=== PATIENT | female | born 1950 | race Caucasian/White ===

== ENCOUNTER → 2018-07-30 | Outpatient (CLI) | payer MEDICARE, OTHER ==
[~2018-07-30] MED LIST: ASCO500T2 PO; ATOR20TA58 PO; B CO1TAB10 PO; BIOF1TAB7 PO; CALC600T4 PO; CETI10TA16 PO; CHOL10003 PO; DILT360C PO; DIPH1TAB PO; FLAX10003 PO; FLEC100T PO; GLUC1CAP13 PO; IBUP-1027 PO; LORA10TA3 PO; MULT1TAB52 PO; PRAS25CA6 PO; TRAM50TA PO; UBID50TA PO
--- NOTE | 2018-07-30 15:57 | KCIC ---
MRI Lumbar Spine without contrast History: Headache low back pain, bilateral hip pain greater on the right Technique: Multiplanar, multi sequential noncontrast MR imaging was performed of the lumbar spine. Comparison: September 26, 2012 Findings: There is fairly advanced degenerative disc disease at L3-4 as seen previously, to lesser degree at L2-3, minimally at L5-S1. There is moderate degenerative disc disease at T11-12 level. There are again likely Tarlov cysts of the sacrum centered near S2-S3 with the largest of these about 2.3 cm. There is trace L3-4 and anterior T11-12 endplate edema likely reactive/degenerative in etiology. There are, likely represent nerve root sleeve cysts of the bilateral T12-L1 and right T11-12 neural foramina. L2-L3: There is minimal disc osteophyte complex and bulge. There is minimal buckling of the ligamentum flavum. Spinal canal and neural foramina are adequate. L3-L4: There is hemangioma of L3. There is mild buckling of the ligamentum flavum and facet degenerative change. There is minimal disc osteophyte complex and bulge. There is minimal narrowing of the far lateral recesses greater on the right, although somewhat increased on the left in interval. Neural foramina are overall adequate. Disc osteophyte complex extends to the proximal right extraforaminal region without significant displacement of the extraforaminal right L3 nerve root. L4-L5: There is mild facet degenerative change and buckling of the ligamentum flavum flavum. Spinal canal is adequate. Neural foramina are overall adequate. L5-S1: There is moderate to severe facet degenerative change greater on the right. Spinal canal and neural foramina are adequate. Impression: 1. There is advanced degenerative disc disease at L3-4, to lesser degree at L2-3 and T11-12. There is mild spondylosis. There is minimal narrowing of the far lateral recesses bilaterally greater on the right at L3-4. 2. 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 Electronically signed by: Jack Peña MD (07/30/2018 3:54 PM) [id number]
== END | disposition home or self-care (01) ==
LOC: KCIC MRI 15:17
PROVIDERS: ATTEND Orthopaedic Surgery
DX: M51.37 Other intervertebral disc degeneration, lumbosacral region (principal); M47.817 Spondylosis without myelopathy or radiculopathy, lumbosacral region; M48.061 Spinal stenosis, lumbar region without neurogenic claudication; M51.34 Other intervertebral disc degeneration, thoracic region; M25.78 Osteophyte, vertebrae; D18.09 Hemangioma of other sites
CPT/HCPCS: 72148

== ENCOUNTER → 2018-09-17 | Outpatient (CLI) | payer OTHER, MEDICARE ==
[2018-09-17 16:09] LABS: BASO % 1 % (0-3); EOS # 0.3 x10^3/uL (0.0-0.7); EOS % 5 % (0-3); HEMATOCRIT 41.7 % (36.0-47.0); HEMOGLOBIN 14.1 g/dL (12.0-15.5); LYMPH # 1.5 x10^3/uL (1.0-4.8); LYMPH % 29 % (24-48); MEAN CORPUSCULAR HEMOGLOBIN 31 pg (25-35); MEAN CORPUSCULAR HGB CONC 34 g/dL (31-37); MEAN CORPUSCULAR VOLUME 93 fL (79-100); MONO # 0.7 x10^3/uL (0.0-1.1); MONO % 14 % (0-9); NEUT # 2.8 x10^3uL (1.8-7.7); NEUT % 52 % (31-73); PLATELET COUNT 221 x10^3/uL (140-400); RED CELL DISTRIBUTION WIDTH 14.1 % (11.5-14.5); WHITE BLOOD COUNT 5.3 x10^3/uL (4.0-11.0)
[2018-09-17 16:34] LABS: ALBUMIN 3.7 g/dL (3.4-5.0); ALBUMIN/GLOBULIN RATIO 1.2 (1.0-1.7); CALCIUM 8.9 mg/dL (8.5-10.1); CREATININE 0.9 mg/dL (0.6-1.0); GFR 62.1; POTASSIUM 3.7 mmol/L (3.5-5.1); TOTAL BILIRUBIN 0.2 mg/dL (0.2-1.0); TOTAL PROTEIN 6.8 g/dL (6.4-8.2)
== END | disposition home or self-care (01) ==
LOC: SURGPAT 13:28
PROVIDERS: ATTEND Neurological Surgery
DX: Z01.818 Encounter for other preprocedural examination (principal); M47.26 Other spondylosis with radiculopathy, lumbar region; M51.16 Intervertebral disc disorders with radiculopathy, lumbar region; Z88.5 Allergy status to narcotic agent
CPT/HCPCS: 36415; 80053; 85025; 87641

== ENCOUNTER 2018-09-27 08:33 | Day surgery (SDC) | payer OTHER ==
--- NOTE | 2018-09-26 16:48 | PREOP HP ---
DATE OF SERVICE: 09/27/2018 Harinder Gordon dictating for Dr. Jr Villegas. Date of surgery will be 09/27/2018. HISTORY OF PRESENT ILLNESS: The patient is a pleasant 68-year-old who has problems with her lower back pain and pain which radiates into her right hip primarily. That pain can radiate in addition to the hip and inguinal region. That problem has been present for years, but has been worse over the last year or so. She says her pain can reach an 8/10. Sitting for any length of time increases her pain. Changing positions helps her. She has had her hip carefully evaluated by an Orthopedic surgeon. He determined that there was no hip problem. She underwent physical therapy in 2013, which she admits made the problem worse. She had an epidural steroid injection in 2015, which she said did help her for a short time. PAST MEDICAL HISTORY: Headaches or migraines, head or neck injury, tonsillitis. PAST SURGICAL HISTORY: Tonsils and adenoids in 1954. FAMILY HISTORY: Cancer, heart problems and disease and spine problems. SOCIAL HISTORY: Tobacco use, denies tobacco use currently. 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 . Rarely exercises. Denies substance abuse. Drinks alcohol 1-2 times per month. Drinks tea daily. ALLERGIES: CODEINE SULFATE. CURRENT MEDICATIONS: Flecainide acetate, diltiazem, atorvastatin calcium, aspirin, glucosamine, calcium, flaxseed oil, multivitamin, vitamin C ____, vitamin D, CoQ10, omega 3, loratadine, ibuprofen. REVIEW OF SYSTEMS: Twelve-point review of systems was obtained and is noncontributory except for that mentioned above. PHYSICAL EXAMINATION: NEUROSURGERY EXAMINATION: GENERAL APPEARANCE: Alert, pleasant, no acute distress. HEAD: Normocephalic and atraumatic. SKIN: Warm and dry. MUSCULOSKELETAL: Lumbar paraspinal muscle bulk is normal, restricted range of motion of the lumbar spine, mild to moderate tenderness of the lower lumbar spine with palpation, normal range of motion of the lower extremities bilaterally. EXTREMITIES: No clubbing, cyanosis or edema. NEUROLOGIC: Alert and oriented x 3, normal recent and remote memory, strength 5/5 in bilateral lower extremities, sensory was intact to light touch in bilateral lower extremities. Reflexes were present and symmetric in lower extremities bilaterally, negative straight leg raising bilaterally, normal gait. IMAGING: Reviewed. I reviewed a lumbar MRI scan from 07/2018. On that study, the principal abnormality was on the right side at L3-L4 where there was lateral recess narrowing. There is a disk osteophyte complex, which also extends to the proximal right foraminal region. ASSESSMENT: Other spondylosis with radiculopathy, lumbar region; intervertebral disk disorder with radiculopathy, lumbar region. PLAN: At this point, the only thing that can be offered is a decompression of L3-L4 on the right side to see if this will help her. I explained it was possible that surgery could be performed and she would not notice any significant change. Alternatively, there is pressure on the nerve root, which does correspond to her leg pain and hopefully decompression at this level will give her some benefit. I spoke with her about the surgery and the risks involved. She understands, she would like to go ahead. We will make the arrangements. JR VILLEGAS MD DR: KERI/callie JOB#: [id number] / [id number]
[~2018-09-27 08:33] MED LIST changes: +BACITRACIN 50,000 UNIT in IV NORMAL SALINE 1000ML BAG 1,000 ML IRR ONE; +BUPIVAC MPF-EPI 0.5%-1:200000 30 ML VIAL. ONE; +GELATIN SPONGE SIZE 12-7MM SPONGE. ONE; +IV RINGERS,LACTATED 1000ML 1,000 ML IV SCH; +KETOROLAC 60 MG/2 ML INJ FOR OR. ONE; +LIDOCAINE 1% PF 2 ML VIAL. ID PRN; +PROCHLORPERAZINE 10 MG/2 ML VIAL. IV PRN; +THROMBIN TOPICAL 20,000 UNIT SPRAY.SYRN KIT TP ONE; +fentaNYL PF VIAL 100 MCG/2 ML VIAL IV PRN
[2018-09-27] MEDS ORDERED: ceFAZolin 2GM PREMIX 2 GM/50 ML BAG IV ONE (09:00)
[2018-09-27] MEDS ORDERED: FAMOTIDINE 20 MG/2 ML VIAL ONE (09:23)
[2018-09-27] MEDS ORDERED: 0.9 % SODIUM CHLORIDE 20 ML VIAL. IJ ONE ×2 (09:23)
[2018-09-27] MEDS ORDERED: LIDOCAINE 2% PF 5 ML VIAL. ONE (09:23)
[2018-09-27] MEDS ORDERED: ONDANSETRON PF 4 MG/2 ML VIAL. ONE (09:23)
[2018-09-27] MEDS ORDERED: DEXAMETHASONE SOD PHOS 20 MG/5 ML VIAL. ONE (09:23)
[2018-09-27] MEDS ORDERED: PROPOFOL 50 ML IV ONE ×2 (09:23→11:47)
[2018-09-27] MEDS ORDERED: PROPOFOL 20 ML IV ONE (09:23)
[2018-09-27] MEDS ORDERED: MIDAZOLAM HCL/PF 2 MG/2 ML VIAL. ONE (09:26)
[2018-09-27] MEDS ORDERED: fentaNYL PF VIAL 100 MCG/2 ML VIAL ONE ×2 (09:26→13:24)
[2018-09-27] MEDS ORDERED: REMIFENTANIL 2 MG VIAL. IV ONE (09:26)
[2018-09-27] MEDS ORDERED: ROCURONIUM 50 MG/5 ML VIAL. ONE (09:26)
[2018-09-27] MEDS ORDERED: GLYCOPYRROLATE 1 MG/5 ML VIAL. ONE (10:30)
[2018-09-27] MEDS ORDERED: PHENYLEPHRINE in 0.9% NACL PF 1 MG/10 ML SYRINGE. IV ONE (10:58)
[2018-09-27] MEDS ORDERED: PHENYLEPHRINE 10 MG/ML VIAL. ONE (11:33)
[2018-09-27] MEDS ORDERED: NEOSTIGMINE METHYLSULFATE 5 MG/5 ML SYRINGE. ONE (11:37)
[2018-09-27] MEDS ORDERED: DESFLURANE > 120 MINUTES IH ONE (12:25)
[2018-09-27] MEDS ORDERED: DESFLURANE 61 TO 120 MINUTES IH ONE (12:25)
--- NOTE | 2018-09-27 12:49 | OP ---
DATE OF SURGERY: 09/27/2018 PREOPERATIVE DIAGNOSES: Lateral recess stenosis L3-L4 right with right lumbar radiculopathy. POSTOPERATIVE DIAGNOSES: Lateral recess stenosis and focal disc herniation L3-L4 right with right lumbar radiculopathy. OPERATION PERFORMED: Hemilaminotomy and microdiscectomy, L3-L4, right. The operation was done with EMG monitoring, SSEP monitoring, fluoroscopy, microscopic dissection. SURGEON: Jr Villegas M.D. CUPOLA CHARGER INSULATION: BRAEDEN Orta, assisted with the surgery. She assisted with the exposure, the microdecompression and diskectomy as well as the closure. OPERATIVE INDICATIONS: The patient is a very pleasant 68-year-old woman who developed intractable back and right hip pain as well as right inguinal region pain, which failed to improve with conservative measures. On imaging studies, she was found to have a focal hypertrophic bone and ligament as well as some disc bulging at L3-L4 on the right side, and I recommended lumbar microsurgery. I discussed with her the surgery, the risks, the technique and expected postoperative course, and she understood and wished to go ahead. DESCRIPTION OF PROCEDURE: Following general endotracheal anesthesia, the patient was positioned prone on the Walter frame. Lumbar region was prepped and draped in standard fashion. ALEX hose and AV impulse boots were applied for DVT prophylaxis. A microscope was draped. Fluoroscopy was draped and brought into the field. Monitoring was established. Ancef 2 grams was given less than 1 hour prior to initiation of surgery. Using fluoroscopic guidance, an incision was made directly over the L3-L4 interspace. I dissected down to skin and subcutaneous tissue, reflected the paraspinal muscles on the right and placed a [place] microdisk retractor. I brought in the microscope. I confirmed my position fluoroscopically during this time. I burred down a generous hemilaminotomy and drilled a foraminotomy, and then, I began to work and freed up and peeled away ligamentum flavum from medial to lateral. There was thickened hypertrophic bone as well as calcified ligament compressing the root just to the level of the disc in the lateral recess and slightly inferior to that. I worked medial to the superior aspect of the pedicle, and I trimmed this material away, and as I worked, the region became well decompressed. I then reflected the root medially, and there was a focal disc herniation directly beneath the root, which was partly calcified, and I carefully and gently held the root back and drilled a portion of this to remove the calcification and then incised the annulus with #11 blade and performed discectomy with pituitary rongeurs. As I worked, the region became very well decompressed. The disc was largely flat, but a focal portion had both hard and soft disc, and as I worked, it became very flat. The root was quite free. I irrigated copiously. Hemostasis was excellent. I irrigated and removed the retractor, obtained hemostasis in the muscle and irrigated, and then, I closed the wound with absorbable suture. The skin was closed with 4-0 subcuticular stitch. The operation went very well, and the patient was taken to recovery room in excellent condition. I was quite pleased with the surgery. JR VILLEGAS MD DR: KERI/callie JOB#: [id number] / [id number] KAMILAH
[2018-09-27] MEDS: fentaNYL PF VIAL 100 MCG/2 ML VIAL IV PRN ×2 (13:25→13:50)
[2018-09-27 13:43] VITALS: BP 145/94
[2018-09-27] MEDS ORDERED: METHOCARBAMOL 750 MG TABLET PO PRN (14:00)
[2018-09-27] MEDS ORDERED: traMADol 50 MG TABLET PO ONE (14:00)
[2018-09-27] MEDS ORDERED: METH-38 PO (14:34)
[2018-09-27] MEDS ORDERED: DOCU-109 PO (14:34)
--- NOTE | 2018-09-27 14:35 | DISCH ---
DISCHARGE INSTRUCTIONS Condition on Discharge Condition on Discharge: Stable Activity After Discharge Activity Instructions for Disc: Activity as tolerated, Avoid exertion Other activity instructions: no driving for a week Bathing Instructions: Shower-keep dressing dry Lifting Instructions after Dis: No heavy lifting, No pulling or pushing, Do not lift >10 pounds Diet after Discharge Additional Diet Restrictions: resume home diet Wound Incision Care Wound/Incision Care: Ice to area for comfort Other wound/incision instructi: may remove dressing in 48 hours if dry then may shower, no soaking Contacting the after DC Call your doctor for: Concerns you may have Follow-Up Follow up with: Dr. Villegas's nurse in 2 weeks [phone] NATALIE VILLEGAS MD Sep 27, 2018 14:35
== END 2018-09-27 15:02 ==
LOC: SURG 08:33
PROVIDERS: ATTEND Neurological Surgery
DX: M51.16 Intervertebral disc disorders with radiculopathy, lumbar region (principal); M48.061 Spinal stenosis, lumbar region without neurogenic claudication; G43.909 Migraine, unspecified, not intractable, without status migrainosus; Z72.89 Other problems related to lifestyle; Z88.5 Allergy status to narcotic agent; Z98.890 Other specified postprocedural states
CPT/HCPCS: 63030; 76000; 97161; A7015; J0696; J1100; J1885; J2001; J2250; J2370; J2405; J2704; J2710; J3010; J3490; J7030; J7120

== ENCOUNTER → 2021-02-16 | Outpatient (CLI) | payer OTHER ==
[~2021-02-16] MED LIST changes: +ALBU2.5V8 INH; +APIX5TAB PO; -ASCO500T2 PO; +ASCO500T4 PO; +B6/F1CAP PO; -BACITRACIN 50,000 UNIT in IV NORMAL SALINE 1000ML BAG 1,000 ML IRR ONE; +BIOT5000 PO; -BUPIVAC MPF-EPI 0.5%-1:200000 30 ML VIAL. ONE; -CALC600T4 PO; +CALC600T60 PO; +DOCU-109 PO; +FERR-36 PO; +FEXO180T16 PO; -GELATIN SPONGE SIZE 12-7MM SPONGE. ONE; -IV RINGERS,LACTATED 1000ML 1,000 ML IV SCH; -KETOROLAC 60 MG/2 ML INJ FOR OR. ONE; -LIDOCAINE 1% PF 2 ML VIAL. ID PRN; +METH-38 PO; +METO-239 PO; +MULT-445 PO; -MULT1TAB52 PO; +OMEG1CAP38 PO; +OXYC1TAB15 PO; -PROCHLORPERAZINE 10 MG/2 ML VIAL. IV PRN; -THROMBIN TOPICAL 20,000 UNIT SPRAY.SYRN KIT TP ONE; +ZINC50TA39 PO; +[UNRECOGNIZED DRUG - CODE] PO; -fentaNYL PF VIAL 100 MCG/2 ML VIAL IV PRN
--- NOTE | 2021-02-16 13:59 | KCIC ---
EXAM: MRI right shoulder DATE: 02/16/2021 10:40 AM COMPARISON: None INDICATION: Reason: RIGHT SHOULDER PAIN / Spl. Instructions: / History: RIGHT SH AND ARM PAIN X 1 YR AFTER A FALL. WORSE SINCE 05/2020. TECHNIQUE: Multiplanar, multisequence MRI right of the shoulder was performed without contrast. FINDINGS: AC joint degenerative changes are seen. No os acromiale. Subacromial-subdeltoid bursal edema, bursitis. High-grade partial-thickness articular sided tear of the anterior supraspinatus tendon measuring appr oximately 9 mm in AP dimension. Increased signal within the supraspinatus and infraspinatus tendon co nsistent with tendinosis. Rotator cuff muscle signal and bulk is normal without fatty atrophy. Intra-articular and extra-articular long head biceps tendon is intact. Evaluation for labral tear rocha ited on this nonarthrographic study. Within these constraints no discrete labral tear. Articular cartilage is grossly preserved. No fracture or osteonecrosis. Mild edema and deformity of t he posterolateral aspect of the superior humeral head likely from Hill-Sachs deformity. IMPRESSION: 1. High-grade partial-thickness/near full-thickness tear of the anteriormost fibers of the supraspin atus measuring 9 mm in AP dimension. 2. Supraspinatus and infraspinatus tendinosis. 3. Subacromial-subdeltoid bursal edema, bursitis. 4. Edema within the posterolateral aspect of the humeral head laterally likely Hill-Sachs deformity. Electronically signed by: Saturnino Fuentes MD (02/16/2021 1:57 PM) [id number]
== END ==
LOC: KCIC MRI 10:05
PROVIDERS: ATTEND Physician Assistant Medical
DX: M75.111 Incomplete rotator cuff tear or rupture of right shoulder, not specified as traumatic (principal); M75.31 Calcific tendinitis of right shoulder; M75.51 Bursitis of right shoulder; M19.011 Primary osteoarthritis, right shoulder; R60.0 Localized edema
CPT/HCPCS: 73221

== ENCOUNTER 2021-03-08 07:10 | Day surgery (SDC) | payer OTHER ==
[~2021-03-08] VITALS: Ht 157.5 cm; Wt 75.0 kg
[~2021-03-08 07:10] MED LIST changes: +HYDROmorphone 2 MG/ML VIAL IVP PRN; +IV RINGERS,LACTATED 1000ML 1,000 ML IV SCH; +MORPHINE SULFATE 2 MG/ML INJ. IVP PRN; -OXYC1TAB15 PO; +PROCHLORPERAZINE 10 MG/2 ML VIAL. IVP PRN; +fentaNYL PF VIAL 100 MCG/2 ML VIAL IVP PRN
[2021-03-08 07:45] VITALS: BP 114/54
[2021-03-08] MEDS ORDERED: LIDOCAINE 2% PF 5 ML VIAL. ONE (08:13)
[2021-03-08] MEDS ORDERED: DEXAMETHASONE SOD PHOS 4 MG/ML VIAL ONE (08:13)
[2021-03-08] MEDS ORDERED: PROPOFOL 10 MG/ML (20ML) VIAL. IV ONE (08:13)
[2021-03-08] MEDS ORDERED: ONDANSETRON PF 4 MG/2 ML VIAL. ONE ×2 (08:14→11:59)
[2021-03-08] MEDS ORDERED: fentaNYL PF VIAL 100 MCG/2 ML VIAL ONE ×2 (08:17→11:10)
[2021-03-08] MEDS ORDERED: EPINEPHrine VIAL 30 MG/30 ML VIAL ONE (08:26)
[2021-03-08] MEDS ORDERED: MIDAZOLAM HCL/PF 2 MG/2 ML VIAL. ONE (08:38)
[2021-03-08] MEDS ORDERED: ROPIVacaine 0.5% PF 20 ML VIAL. ONE (08:38)
[2021-03-08] MEDS ORDERED: OXYC1TAB15 PO (09:09)
[2021-03-08] MEDS ORDERED: ROCURONIUM 50 MG/5 ML VIAL. ONE (09:13)
[2021-03-08] MEDS ORDERED: ePHEDrine PF IN SALINE 50 MG/10 ML SYRINGE. IV ONE (09:45)
[2021-03-08] MEDS ORDERED: NEOSTIGMINE METHYLSULFATE 5 MG/5 ML SYRINGE. ONE (09:46)
[2021-03-08] MEDS ORDERED: GLYCOPYRROLATE 1 MG/5 ML VIAL. ONE (09:46)
--- NOTE | 2021-03-08 10:25 | PDOC4 ---
OPERATIVE NOTE Date: Date: Mar 08, 2021 Pre-Op Diagnosis: Impingement possible AC arthrosis possible bicep tear and rotator cuff tear near complete right shoulder Post-Op Diagnosis: Impingement with 90% rotator cuff tear supraspinatus right shoulder Procedure Performed: Right shoulder arthroscopy with subacromial decompression release CA ligament mini open rotator cuff repair Surgeon: Natalie Anesthesia Type: General Blood Loss: 30 cc Specimans Obtained: None Findings: See dictation Complications: None EMILY BURTON Jr. DO Mar 08, 2021 10:25
--- NOTE | 2021-03-08 10:27 | DISCH ---
DISCHARGE INSTRUCTIONS Condition on Discharge Condition on Discharge: Stable Activity After Discharge Activity Instructions for Disc: Activity as tolerated, Avoid exertion Bathing Instructions: Shower-keep dressing dry Lifting Instructions after Dis: No heavy lifting, No pulling or pushing, Do not lift >10 pounds Driving Instructions after Dis: Do not drive today Diet after Discharge Additional Diet Restrictions: resume home diet Wound Incision Care Wound/Incision Care: Ice to area for comfort, Change dressing Other wound/incision instructi: May change dressing postoperative day #3 Contacting the DRMichael after DC Call your doctor for: Concerns you may have Follow-Up Follow up with: 10 to 14 days EMILY BURTON Jr. DO Mar 08, 2021 10:26
--- NOTE | 2021-03-08 10:35 | OP ---
DATE OF SURGERY: 03/08/2021 PREOPERATIVE DIAGNOSIS: Impingement with deep partial rotator cuff tear, supraspinatus, right shoulder. POSTOPERATIVE DIAGNOSIS: Impingement with deep partial rotator cuff tear, supraspinatus, right shoulder. PROCEDURE: Right shoulder arthroscopy with subacromial decompression, release CA ligament and mini open rotator cuff repair. SURGEON: Dimitris Estrada DO FOOTBALL PAD REPAIRER: Dr. Sven Spear. ANESTHESIA: General. COMPLICATIONS: None. ESTIMATED BLOOD LOSS: 30 mL. 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 DESCRIPTION OF PROCEDURE: The patient was taken to the operative suite, given general anesthetic, placed in a beach chair position. Right shoulder was then prepped and draped in a sterile fashion. Standard posterolateral portal was established. Glenohumeral joint was visualized. There were noted to be no significant abnormalities noted of the labral tissue or the biceps tendon or the glenoid surface, the humeral surfaces were completely intact; however, there is deep fraying and tearing of the undersurface of the rotator cuff and near complete tear was noted at about 90% torn. However, no loose bodies within the inferior pouch, no other abnormalities. Probing of this labrum revealed this to be stable. Scope was then taken into the subacromial region where the anterior osteophyte and downsloping of the anterior acromion was skeletonized and then subsequently burred down for decompression. AC joint actually appeared to be intact at this point. Due to the tearing, all instruments were then removed. An incision was made laterally incorporating the lateral portal through skin and subcutaneous tissues down through the deltoid fascia, which was split in line with the skin incision. Retractors were placed in appropriate position with the anterior and posterior retraction and the remainder of the cuff along the area of the supraspinatus for about 1.5 cm was incised to complete the tear. Only about 10%, again was remaining. This was then freshened up and the 2 suture anchors were placed for a medial row fixation. Sutures were then placed through the cuff, which was tied down and was noted to be a good fixation and good positioning of the cuff. Then, two SwiveLocks were used with 1 suture from each of the screws placed within the lateral aspect for lateral row fixation. This completed this. This is very stable and good repair. Therefore, this was irrigated and suctioned dry. The deltoid split was reapproximated. Superficial tissue and skin was reapproximated. Sterile dressing was applied. The patient was then taken from the operative bed to the postoperative bed, taken to the PACU in stable condition. FLORES DR: Nanda TID: [id number]
[2021-03-08] MEDS: fentaNYL PF VIAL 100 MCG/2 ML VIAL IVP PRN ×2 (11:12→11:41)
[2021-03-08 11:50] VITALS: BP 124/54
[2021-03-08] MEDS ORDERED: SCOPOLAMINE 1.5MG PATCH. TD ONE ×2 (12:11→12:45)
[2021-03-08] MEDS ORDERED: PROCHLORPERAZINE 10 MG/2 ML VIAL. ONE (12:15)
[2021-03-08] MEDS ORDERED: ONDANSETRON PF 4 MG/2 ML VIAL. IVP ONE (12:45)
== END 2021-03-08 13:11 | disposition home or self-care (01) ==
LOC: SURG 07:10
PROVIDERS: ATTEND Orthopaedic Surgery
DX: M75.101 Unspecified rotator cuff tear or rupture of right shoulder, not specified as traumatic (principal); M25.511 Pain in right shoulder; I48.91 Unspecified atrial fibrillation; E78.00 Pure hypercholesterolemia, unspecified; M19.90 Unspecified osteoarthritis, unspecified site; F32.9 Major depressive disorder, single episode, unspecified; Z85.828 Personal history of other malignant neoplasm of skin; Z79.899 Other long term (current) drug therapy; Z98.890 Other specified postprocedural states; Z88.5 Allergy status to narcotic agent; Z88.8 Allergy status to other drugs, medicaments and biological substances; Z72.89 Other problems related to lifestyle
CPT/HCPCS: 29826; 29827; A4565; A4928; A4930; C1713; J0171; J0690; J0780; J1100; J2250; J2405; J2704; J2710; J2795; J3010; J3490; A4452